=== PATIENT | male | born 1965 | race Caucasian/White ===

== ENCOUNTER 2017-01-11 17:02 | Emergency (ER) | payer OTHER ==
[2017-01-11 17:21] VITALS: BP 151/94; PULSE 77; RESP 16; TEMP 97.7; O2SAT 94
--- NOTE | 2017-01-11 17:52 | EDPHY ---
H & P Time Seen by Provider: 01/11/17 17:41 HPI/ROS: This patient presents with the 3rd toe injury from stopping his foot against a wooden stair at home this morning while barefoot. He reports moderate pain initially it has become more prominent this afternoon particularly with walking. He notes associated redness and swelling to the distal phalanx of the eponychial region. He denies any other injuries except for minimal discomfort to adjacent toes. ROS: He reports no numbness. No other neuro symptoms Musculoskeletal: No other injuries 5 point ROS is otherwise negative Past Medical/Surgical History: Otherwise healthy Smoking Status: Never smoked Physical Exam: Physical Exam Vital signs are normal. General: No acute distress Lungs: No respiratory distress. Cardiac: Brisk capillary refill is intact throughout. Skin: No rash or pallor. Extremities: Atraumatic normal except for right foot Right foot: Patient has 3rd toe injury with ecchymosis swelling erythema to the distal phalanx particularly the eponychial region with a 10% subungual hematoma at the proximal nail bed. There is associated tenderness. There is slight warmth to the eponychial region as well. No fluctuance. Neuro: Alert and oriented x3 with no sensorimotor deficits. Initial differential diagnosis: Hematoma, fracture, posttraumatic eponychium Constitutional: Initial Vital Signs Temperature (C) 36.5 C 01/11/17 17:17 Heart Rate 77 01/11/17 17:17 Respiratory Rate 16 01/11/17 17:17 Blood Pressure 151/94 H 01/11/17 17:17 O2 Sat (%) 94 01/11/17 17:17 O2 Delivery Mode Room Air Allergies/Adverse Reactions: Penicillins Allergy (Intermediate, Verified 01/11/17 17:19) Hives Home Medications: Medication Instructions Recorded Cephalexin [Keflex (*)] 500 mg PO TID #21 cap 01/11/17 Zyrtec 01/11/17 MDM/Departure - MDM Diagnostics: Foot x-ray: Negative for fracture by my interpretation Imaging: I viewed and interpreted images myself ED Course/Re-evaluation: Discussion: No fracture, patient may have an early eponychium associated with his minor toe trauma. I counseled regarding this. Although the patient has a penicillin allergy has tolerated Keflex in the past still prescribed Keflex for eponychium, though at this time it is not at clearly infected. A and counseled him to watch over the next couple is not becomes more red warm to touch to start the Keflex. He understands the need to return should he have worsening of symptoms despite the plan. - Depart Disposition: Home, Routine, Self-Care Clinical Impression: Contusion, toe Qualifiers: Encounter type: initial encounter Toe: unspecified toe Qualified Code(s): S90.129A - Contusion of unspecified lesser toe(s) without damage to nail, initial encounter Condition: Good Instructions: Paronychia (ED) Additional Instructions: Diagnosis: Toe contusion/hematoma You may also have early eponychial/paronychia which is a skin infection beside the toenail that can sometimes occur after trauma. Plan: Ice, ibuprofen Tylenol for discomfort if needed If you develop further redness to the area and pain, start the Keflex antibiotic. Return for any significant worsening despite the treatment plan Prescriptions: Cephalexin [Keflex (*)] 500 mg PO TID #21 cap Referrals: Juvenal Longo DO [Primary Care Provider] - As per Instructions
== END 2017-01-11 18:01 | disposition home or self-care (01) ==
LOC: CED 17:02
DX: S90.121A Contusion of right lesser toe(s) without damage to nail, initial encounter (principal); W22.8XXA Striking against or struck by other objects, initial encounter
CPT/HCPCS: 73630-PO